=== PATIENT | female | born 2000 | race Caucasian/White ===

== ENCOUNTER 2023-08-14 08:06 | Outpatient (CLI) | payer BC, SELFPAY | END 2023-08-14 08:07 | disposition home or self-care (01) | LOC: NFLDREF 08-16 08:14 | PROVIDERS: PCP Emergency Medicine; Referring Provider Emergency Medicine; Visit Provider Emergency Medicine | DX: E78.5 Hyperlipidemia, unspecified (principal); Z13.1 Encounter for screening for diabetes mellitus | CPT/HCPCS: 80061; 82947 ==

== ENCOUNTER 2023-09-20 11:45 | Outpatient (RCR) | payer BC, SELFPAY | END 2024-01-18 23:59 | disposition home or self-care (01) | PROVIDERS: PCP Emergency Medicine; Visit Provider Emergency Medicine | DX: M54.50 Low back pain, unspecified (principal); Z51.89 Encounter for other specified aftercare | CPT/HCPCS: 97110; 97140; 97161 ==

== ENCOUNTER 2024-06-02 22:04 | Outpatient (REF) | payer BC, SELFPAY ==
[2024-06-03 00:15] LABS: Ferritin* 17.1 ng/mL (6.24-137.0)
[2024-06-05 11:59] LABS: Anaplasma phagocyt PCR Not Detected; Babesia microti by PCR Not Detected; Babesia species by PCR Not Detected; Ehrlichia chaffeensis by PCR Not Detected; Ehrlichia ewingii/canis by PCR Not Detected; Ehrlichia muris-like by PCR Not Detected
[2024-06-06 05:55] LABS: 25-Hydroxyvitamin D2 <1.0 ng/mL; 25-Hydroxyvitamin D2,D3 Total 45.9 ng/mL (30.0-80.0); 25-Hydroxyvitamin D3 45.9 ng/mL
== END 2024-06-02 22:05 | disposition home or self-care (01) ==
LOC: NPINS 22:04
PROVIDERS: PCP Emergency Medicine; Visit Provider Pediatrics
DX: G43.909 Migraine, unspecified, not intractable, without status migrainosus (principal); R11.2 Nausea with vomiting, unspecified
CPT/HCPCS: 82306; 82728; 86617; 87468; 87469; 87484; 87798